=== PATIENT | male | born 2000 | race Caucasian/White ===

== ENCOUNTER 2019-03-25 19:49 | Emergency (ER) | payer OTHER ==
[~2019-03-25] VITALS: Ht 170.2 cm; Wt 72.7 kg
[2019-03-25] MEDS ORDERED: ACETAMINOPHEN 500 MG TAB PO ONE (20:30)
[2019-03-25] MEDS ORDERED: IBUPROFEN 800 MG TAB PO ONE (20:30)
[2019-03-25 20:36] LABS: INFLUENZA A AMPLIFICATION NEGATIVE (NEGATIVE); INFLUENZA B AMPLIFICATION NEGATIVE (NEGATIVE)
[2019-03-25] MEDS ORDERED: ONDANSETRON 4MG/2ML VIAL (J2405) IV ONE (21:15)
[2019-03-25] MEDS ORDERED: NS 1,000 ML IV ONE (21:15)
[2019-03-25 21:36] LABS: BASO % 0.3 % (0.0-1.0); EOS # 0.2 10^3/uL (0.0-0.5); EOS % 2.7 % (0.0-3.0); HEMATOCRIT 46.3 % (42.0-52.0); HEMOGLOBIN 16.1 g/dl (13.5-17.5); LYMPH # 0.7 10^3/uL (1.5-5.0); LYMPH % 9.1 % (24.0-44.0); MEAN CORPUSCULAR HGB CONC 34.8 g/dl (32.0-36.5); MEAN CORPUSCULAR VOLUME 80.5 fl (80.0-96.0); MONO # 0.5 10^3/uL (0.0-0.8); MONO % 6.8 % (0.0-5.0); NEUTROPHILS # 6.1 10^3/uL (1.5-8.5); NEUTROPHILS % 80.7 % (36.0-66.0); PLATELET COUNT, AUTOMATED 231 10^3/uL (150-450); RED BLOOD COUNT 5.75 10^6/uL (4.30-6.10); WHITE BLOOD COUNT 7.5 10^3/uL (4.0-10.0)
[2019-03-25 21:53] LABS: ALT/SGPT 20 U/L (12-78); BILIRUBIN,DIRECT 0.4 MG/DL (0.0-0.2); BILIRUBIN,TOTAL 2.3 MG/DL (0.2-1.0); BLOOD UREA NITROGEN 13 MG/DL (7-18); CALCIUM LEVEL 8.8 MG/DL (8.5-10.1); CARBON DIOXIDE LEVEL 27 MEQ/L (21-32); CHLORIDE LEVEL 103 MEQ/L (98-107); CREATININE FOR GFR 1.12 MG/DL (0.70-1.30); GLUCOSE, FASTING 99 MG/DL (70-100); LIPASE 51 U/L (73-393); POTASSIUM SERUM 3.9 MEQ/L (3.5-5.1); SODIUM LEVEL 137 MEQ/L (136-145); TOTAL PROTEIN 7.1 GM/DL (6.4-8.2)
--- NOTE | 2019-03-25 23:46 | REPVR ---
PROCEDURE INFORMATION: Exam: US Abdomen Limited, Right Upper Quadrant Exam date and time: 03/25/2019 10:51 PM Age: 18 years old Clinical indication: Abnormal findings; Abnormal lab test; Elevated liver enzymes; Additional info: Abd pain with elevated bili, R/O biliary obstruction TECHNIQUE: Imaging protocol: Real-time ultrasound of the abdomen with image documentation. Examination was focused on the right upper quadrant. COMPARISON: No relevant prior studies available. FINDINGS: Liver: Normal. No masses. Gallbladder: Normal. No gallstones. There is no gallbladder wall thickening. Common bile duct: Normal. No stones. No dilation. Pancreas: Visualized pancreas is unremarkable. Right kidney: Normal. No mass. No hydronephrosis. IMPRESSION: No acute findings. Electronically signed by: Kofi Oscar On 03/25/2019 23:45:41 PM
[2019-03-25] MEDS ORDERED: ONDA4TAB6 PO (23:57)
[2019-03-26] VITALS: BP 115/62
== END 2019-03-26 00:09 | disposition home or self-care (01) ==
LOC: M ED 19:49
DX: R10.9 Unspecified abdominal pain (principal); R11.0 Nausea; R94.5 Abnormal results of liver function studies
CPT/HCPCS: 76705; 80048; 80076; 83690; 85025; 87502; 96361; 96374; 99284; J2405